=== PATIENT | female | born 1985 | race Caucasian/White ===

== ENCOUNTER 2021-11-18 09:28 | Emergency (ER) | payer OTHER ==
[~2021-11-18] VITALS: Ht 175.3 cm; Wt 88.5 kg
[~2021-11-18 09:28] MED LIST: ALBU90OI; AZIT250 PO; BECLOI16.8 IH; BUPR150ER PO; BUPR150T2; CARPSEDM30 PO; CYCL10 PO; DIAZ5 PO; DOXY100 PO; DULO60 PO; GABA300 PO; GABA600 PO; HYDACE5 PO; IBUP600 PO; IBUP800 PO; KETO10 PO; LORA1 PO; META800 PO; METCAR500 PO; METO10 PO; METO5A PO; METPRE4DP PO; NAPR500 PO; NITR100CA PO; Norco 10-325 T1 EACH PO; ONDA4 PO; ONDA4ODT MM; PHENA200 PO; PREN-16 PO; PROM25 PO; PYRI100 PO; Percocet 5-3251 EACH PO; RXMETA400 PO; RXNAPNA550 PO; RXONDA4ODT MM; SERT50; SUBOXONE 8 MG-1 EACH; SULTRIDS PO; VARE1; Valium5 MG PO; [UNRECOGNIZED DRUG - REMARK]
[2021-11-18 11:02] LABS: Source, Urine Clean Catch
[2021-11-18 11:18] LABS: BASOPHILS ABSOLUTE AUTO 0.04 K/mm3 (0.00-0.23); BASOPHILS PERCENT AUTO 0 % (0-2); EOSINOPHILS ABSOLUTE AUTO 0.12 K/mm3 (0.00-0.68); EOSINOPHILS PERCENT AUTO 1 % (0-6); Hematocrit 44.4 % (33.0-51.0); Hemoglobin 13.8 g/dL (11.5-16.0); IMMATURE GRAN ABSOLUTE AUTO 0.02 K/mm3 (0.00-0.10); IMMATURE GRAN PERCENT AUTO 0 % (0-1); LYMPHOCYTES ABSOLUTE AUTO 1.83 K/mm3 (0.84-5.20); LYMPHOCYTES PERCENT AUTO 19 % (21-46); MONOCYTES ABSOLUTE AUTO 0.68 K/mm3 (0.16-1.47); MONOCYTES PERCENT AUTO 7 % (4-13); Mean Corpuscular HGB 27.9 pg (26.0-34.0); Mean Corpuscular HGB Conc 31.1 g/dL (31.5-36.5); Mean Corpuscular Volume 90 fL (80-100); Mean Platelet Volume 10.9 fL (9.1-12.4); NEUTROPHILS ABSOLUTE AUTO 7.08 K/mm3 (1.96-9.15); NEUTROPHILS PERCENT AUTO 73 % (41-73); Platelet Count 255 K/mm3 (150-400); RDW Coefficient Variation 15.9 % (11.7-14.2); RDW Standard Deviation 52.4 fL (35.1-46.3); Red Blood Cell Count 4.95 M/mm3 (3.80-5.20); White Blood Cell Count 9.77 K/mm3 (4.00-11.30)
[2021-11-18 11:26] LABS: Appearance, Urine Hazy (Clear); Bilirubin, Urine Neg (Neg); Blood, Urine 2+ (Neg); Color, Urine Yellow (P-Yellow); Glucose Qualitative, Urine Neg (Neg); Ketones, Urine Neg (Neg); Leukocyte Esterase, Urine Neg (Neg); Nitrite, Urine Pos (Neg); Protein, Urine 1+ (Neg); Specific Gravity, Urine 1.015 (1.003-1.022); Urobilinogen, Urine NORM (Normal); pH, Urine 6.5 (5.0-8.0)
[2021-11-18 11:28] LABS: Alanine Aminotransfer (ALT/SGP 27 U/L (12-78); Albumin, Blood 3.5 g/dL (3.4-5.0); Albumin/Globulin Ratio 0.9 (0.8-1.8); Alk Phos 66 U/L (50-136); Anion Gap 9 mmol/L (6-16); Aspartate Aminotrans (AST/SGOT 12 U/L (12-37); Bilirubin, Total 0.3 mg/dL (0.1-1.0); Blood Urea Nitrogen 8 mg/dL (8-24); Bun/Creatinine Ratio 12.3 (12.0-20.0); CO2, Blood 25 mmol/L (21-32); Calcium, Blood 8.9 mg/dL (8.5-10.1); Chloride, Blood 105 mmol/L (98-108); Creatinine, Blood 0.65 mg/dL (0.40-1.00); Globulin, Blood 4.1 g/dL (2.2-4.0); Glomerular Filtration Rate >60 (60-); Glucose, Blood 88 mg/dL (70-99); Sodium, Blood 139 mmol/L (136-145); Total Protein, Blood 7.6 g/dL (6.4-8.2)
[2021-11-18 11:41] LABS: Bacteria Many /hpf; Red Blood Cells, Urine 0-2 /hpf (0-2); Squamous Epithelial Cells Many /hpf (Few); White Blood Cells, Urine 0-2 /hpf (0-5)
== END 2021-11-18 12:21 | disposition home or self-care (01) ==
LOC: ER 09:28
PROVIDERS: Physician Assistant
DX: K52.9 Noninfective gastroenteritis and colitis, unspecified (principal); J45.909 Unspecified asthma, uncomplicated; D64.9 Anemia, unspecified; F17.210 Nicotine dependence, cigarettes, uncomplicated; Z79.899 Other long term (current) drug therapy; Z88.1 Allergy status to other antibiotic agents; Z91.013 Allergy to seafood
CPT/HCPCS: 36415; 74176; 80053; 81001; 81025; 83690; 85025; J1885; J7030

== ENCOUNTER 2024-10-01 13:02 | Emergency (ER) | payer OTHER ==
[~2024-10-01] VITALS: Ht 175.3 cm; Wt 81.7 kg
[2024-10-01 13:34] VITALS: BP 116/77
[2024-10-01] MEDS ORDERED: Ketorolac Tromethamine 30mg Vial IM ONE (14:20)
[2024-10-01] MEDS ORDERED: Norco 5-325 Ta1 EACH PO (14:28)
[2024-10-01] MEDS ORDERED: IBUP800 PO (14:30)
== END 2024-10-01 14:33 | disposition home or self-care (01) ==
LOC: ER 13:02
DX: M25.562 Pain in left knee (principal); F17.210 Nicotine dependence, cigarettes, uncomplicated; V86.52XA Driver of snowmobile injured in nontraffic accident, initial encounter
CPT/HCPCS: 29505; 73562-LT; 96372-59; 99283-25; J1885